=== PATIENT | female | born 1940 | race Caucasian/White ===

== ENCOUNTER 2023-04-10 08:20 | Outpatient (CLI) | payer MEDICARE, OTHER ==
[2023-04-10] MEDS ORDERED: Iopamidol 370 76% 100 ML VIAL ONE (12:43)
== END 2023-04-10 08:21 | disposition home or self-care (01) ==
LOC: CSHCT 08:20
PROVIDERS: ATTEND Specialist
DX: I65.23 Occlusion and stenosis of bilateral carotid arteries (principal); T82.856A Stenosis of peripheral vascular stent, initial encounter; R91.1 Solitary pulmonary nodule; J32.0 Chronic maxillary sinusitis; Z97.8 Presence of other specified devices
CPT/HCPCS: 70498; 82565; Q9967

== ENCOUNTER 2023-04-19 08:07 | Outpatient (CLI) | payer MEDICARE, OTHER | END 2023-04-19 08:08 | disposition home or self-care (01) | LOC: CSHCT 08:07 | PROVIDERS: ATTEND Specialist | DX: R91.8 Other nonspecific abnormal finding of lung field (principal); J84.10 Pulmonary fibrosis, unspecified; I70.8 Atherosclerosis of other arteries; I77.1 Stricture of artery; K44.9 Diaphragmatic hernia without obstruction or gangrene | CPT/HCPCS: 71260 ==

== ENCOUNTER 2023-10-11 07:41 | Outpatient (CLI) | payer MEDICARE, OTHER ==
[2023-10-11] MEDS ORDERED: Iopamidol 370 76% 100 ML VIAL ONE (07:56)
== END 2023-10-11 07:42 | disposition home or self-care (01) ==
LOC: CSHCT 07:41
PROVIDERS: ATTEND Specialist
DX: R91.8 Other nonspecific abnormal finding of lung field (principal); R91.1 Solitary pulmonary nodule; I65.22 Occlusion and stenosis of left carotid artery; Z95.828 Presence of other vascular implants and grafts
CPT/HCPCS: 71260; 82565; Q9967